=== PATIENT | female | born 1965 | race Caucasian/White ===

== ENCOUNTER → 2016-09-02 | Outpatient (CLI) | payer BC ==
[~2016-09-02] MED LIST: AUGMENTIN 500 M1 TAB PO; NAPROSYN500 MG PO; NORCO 5-325 TA1 EACH PO; PENNSAID112 GM TP; TESSALON PERLE100 M1 PO; TORADOL10 MG PO; ZITHROMAX Z PA250 MG PO
== END | disposition home or self-care (01) ==
LOC: ORTHO 01:21
DX: M25.521 Pain in right elbow (principal)

== ENCOUNTER → 2016-12-09 | Outpatient (CLI) | payer BC | END | disposition home or self-care (01) | LOC: CT 12:48 | DX: M17.12 Unilateral primary osteoarthritis, left knee (principal) ==

== ENCOUNTER → 2017-01-25 | Outpatient (CLI) | payer BC ==
[~2017-01-25] MED LIST changes: +BELVIQ10 M1 PO; +CELECOXIB200 M1 PO; +IBU-200200 MG PO; +ULTRAM50 MG PO
[2017-01-25 09:23] LABS: BILIRUBIN NEGATIVE (NEGATIVE); BLOOD 1+ (NEGATIVE); CLARITY CLOUDY (CLEAR); COLOR YELLOW (YELLOW); GLUCOSE NEGATIVE (NEGATIVE); KETONE TRACE (NEGATIVE); LEUKO ESTERASE TRACE (NEGATIVE); NITRITE NEGATIVE (NEGATIVE); PH 5.5 (5.0-9.0); PROTEIN NEGATIVE (NEGATIVE); SPECIFIC GRAVITY >= 1.030 (1.005-1.030); UROBILINOGEN 0.2 E.U./dl (0.2-1.0)
[2017-01-25 09:25] LABS: BASO % 0.3 % (0.0-1.0); EOS # 0.4 10*3/uL (0.0-0.4); HEMATOCRIT 39.8 % (37.0-47.0); HEMOGLOBIN 13.5 g/dl (12.0-16.0); LYMPH # 1.1 10*3/uL (1.3-4.4); LYMPH % 17.1 % (27.0-41.0); MEAN CELL VOLUME 90.7 fl (81.0-99.0); MEAN CORPUSCULAR HGB 30.8 pg (27.0-31.0); MEAN CORPUSCULAR HGB CONC 33.9 g/dl (33.0-37.0); MEAN PLATELET VOLUME 9.9 fl (9.6-12.3); MONO # 0.5 10*3/uL (0.1-1.0); MONO % 8.1 % (3.0-9.0); NEUT # 4.1 10*3/uL (2.3-7.9); PLATELET COUNT AUTOMATED 248 10*3/uL (130-400); RED BLOOD COUNT 4.39 10*6/uL (4.10-5.10); RED CELL DISTRI WIDTH 12.3 % (0-14.5); WHITE BLOOD COUNT 6.1 10*3/uL (4.8-10.8)
[2017-01-25 09:36] LABS: BACTERIA 4+; EPITHELIAL CELLS 15-20; URINE REFLEX COMMENT YES (NO)
[2017-01-25 09:50] LABS: ALBUMIN 3.8 gm/dl (3.1-4.5); ALKALINE PHOSPHATASE 50 U/L (45-117); BILIRUBIN, TOTAL 0.7 mg/dl (0.2-1.0); BUN 12 mg/dl (7-24); CARBON DIOXIDE 27 mmol/L (21-32); CHLORIDE 108 mmol/L (98-107); EST GLOM FILT AFRICAN AMERICAN > 60 ml/min; GLUCOSE 89 mg/dL (65-99); POTASSIUM 4.1 mmol/L (3.5-5.1); SGOT/AST 14 IU/L (3-35); SGPT/ALT 17 U/L (12-78); SODIUM 143 mmol/L (136-145); TOTAL PROTEIN 7.1 gm/dL (6.4-8.2)
== END | disposition home or self-care (01) ==
LOC: LAB 08:03
PROVIDERS: Orthopaedic Surgery
DX: Z01.818 Encounter for other preprocedural examination (principal); M17.12 Unilateral primary osteoarthritis, left knee; Z96.652 Presence of left artificial knee joint

== ENCOUNTER → 2017-01-25 | Outpatient (CLI) | payer BC ==
[~2017-01-25] VITALS: Ht 160 cm; Wt 97.5 kg
== END | disposition home or self-care (01) ==
LOC: SDC 08:00 → LAB 15:04 → SDC 01-31 03:32 → EDSTATUS 01-31 08:00
DX: M19.90 Unspecified osteoarthritis, unspecified site (principal); Z53.8 Procedure and treatment not carried out for other reasons

== ENCOUNTER → 2017-01-26 | Outpatient (CLI) | payer BC ==
[2017-01-26 10:39] LABS: BILIRUBIN NEGATIVE (NEGATIVE); BLOOD TRACE-INTACT (NEGATIVE); CLARITY SL CLOUDY (CLEAR); COLOR YELLOW (YELLOW); GLUCOSE NEGATIVE (NEGATIVE); KETONE TRACE (NEGATIVE); LEUKO ESTERASE NEGATIVE (NEGATIVE); NITRITE NEGATIVE (NEGATIVE); PROTEIN NEGATIVE (NEGATIVE); SPECIFIC GRAVITY 1.025 (1.005-1.030)
[2017-01-26 13:00] LABS: BACTERIA 2+; URINE REFLEX COMMENT YES (NO)
== END | disposition home or self-care (01) ==
LOC: LAB 09:21
PROVIDERS: Orthopaedic Surgery
DX: R89.9 Unspecified abnormal finding in specimens from other organs, systems and tissues (principal)

== ENCOUNTER → 2017-01-30 | Outpatient (CLI) | payer BC ==
[2017-01-30 14:45] LABS: BILIRUBIN NEGATIVE (NEGATIVE); BLOOD NEGATIVE (NEGATIVE); CLARITY CLEAR (CLEAR); COLOR YELLOW (YELLOW); GLUCOSE NEGATIVE (NEGATIVE); KETONE NEGATIVE (NEGATIVE); LEUKO ESTERASE NEGATIVE (NEGATIVE); NITRITE NEGATIVE (NEGATIVE); PROTEIN NEGATIVE (NEGATIVE); SPECIFIC GRAVITY <= 1.005 (1.005-1.030); UROBILINOGEN 0.2 E.U./dl (0.2-1.0)
[2017-01-30 15:21] LABS: BACTERIA 1+; URINE REFLEX COMMENT NO (NO); WBC 0-2 wbc/hpf (0-5)
== END | disposition home or self-care (01) ==
LOC: LAB 13:37
PROVIDERS: Orthopaedic Surgery
DX: R89.9 Unspecified abnormal finding in specimens from other organs, systems and tissues (principal)

== ENCOUNTER → 2017-01-31 | Outpatient (CLI) | payer BC ==
--- NOTE | ~2017-01-31 | ST ---
[place], [place] EXERCISE STRESS TEST REPORT NAME: OFELIA BANKS UNIT #: [id number] ROOM: DOCTOR: YUMIKO SANTANA,SAVITA BIRTHDATE: [birth year] DOS: 01/31/2017 REASON FOR STUDY: Abnormal preoperative electrocardiogram, preoperative assessment prior to knee surgery. PROCEDURE: The patient was given a rapid infusion of regadenoson 0.4 mg intravenously followed by a saline flush. She felt flushed, lightheaded, and dyspneic, but her symptoms passed spontaneously. Her resting heart rate of 68 alberto to 119. The resting blood pressure 172/96 fell to 150/84. The resting electrocardiogram was normal with poor precordial R-wave progression, but no acute changes. With the infusion, she did have a normal tachycardic response, but no diagnostic ST changes. IMPRESSION: 1. Well tolerated infusion regadenoson. 2. Radionuclide administered 40 seconds after the infusion of regadenoson. Please see the separate radionuclide imaging report for further details of the patient's stress test results. SAVITA CALDERON MD CM:STRESS:EXERCISE STRESS TEST REPORT [id number] SAVITA CALDERON MD
== END | disposition home or self-care (01) ==
LOC: CARD 02:44
DX: Z01.818 Encounter for other preprocedural examination (principal); R94.31 Abnormal electrocardiogram [ECG] [EKG]

== ENCOUNTER → 2017-02-03 | Outpatient (CLI) | payer BC | END | disposition home or self-care (01) | LOC: CARD 00:28 | DX: Z01.818 Encounter for other preprocedural examination (principal); R94.31 Abnormal electrocardiogram [ECG] [EKG]; I07.1 Rheumatic tricuspid insufficiency ==

== ENCOUNTER 2017-02-14 04:00 | Inpatient (IN) | payer OTHER ==
[2017-02-14] VITALS (10 sets, daily range): BP systolic 102–131; BP diastolic 59–88
[~2017-02-14] VITALS: Ht 160 cm; Wt 97.5 kg
[2017-02-14 13:42] LABS: BASO % 0.1 % (0.0-1.0); EOS # 0.2 10*3/uL (0.0-0.4); EOS % 1.8 % (1.0-4.0); HEMATOCRIT 38.1 % (37.0-47.0); HEMOGLOBIN 12.9 g/dl (12.0-16.0); LYMPH # 0.9 10*3/uL (1.3-4.4); LYMPH % 9.9 % (27.0-41.0); MEAN CELL VOLUME 90.9 fl (81.0-99.0); MEAN CORPUSCULAR HGB 30.8 pg (27.0-31.0); MEAN CORPUSCULAR HGB CONC 33.9 g/dl (33.0-37.0); MEAN PLATELET VOLUME 9.4 fl (9.6-12.3); MONO # 0.7 10*3/uL (0.1-1.0); MONO % 7.9 % (3.0-9.0); NEUT # 7.4 10*3/uL (2.3-7.9); PLATELET COUNT AUTOMATED 213 10*3/uL (130-400); RED BLOOD COUNT 4.19 10*6/uL (4.10-5.10); RED CELL DISTRI WIDTH 12.4 % (0-14.5); WHITE BLOOD COUNT 9.2 10*3/uL (4.8-10.8)
[2017-02-14 13:50] LABS: PROTHROMBIN TIME 10.8 SECONDS (9.0-12.4)
[2017-02-14 13:59] LABS: ALBUMIN 3.3 gm/dl (3.1-4.5); ALKALINE PHOSPHATASE 48 U/L (45-117); BILIRUBIN, TOTAL 0.4 mg/dl (0.2-1.0); BUN 8 mg/dl (7-24); CARBON DIOXIDE 28 mmol/L (21-32); CHLORIDE 109 mmol/L (98-107); CHOLESTEROL 145 mg/dL (<200); EST GLOM FILT AFRICAN AMERICAN > 60 ml/min; GLUCOSE 109 mg/dL (65-99); HDL CHOLESTEROL 46 mg/dl (40-60); LDL CHOLESTEROL 87 mg/dL (9-159); PHOSPHOROUS 3.7 mg/dL (2.5-4.9); POTASSIUM 4.1 mmol/L (3.5-5.1); SGOT/AST 13 IU/L (3-35); SGPT/ALT 18 U/L (12-78); SODIUM 148 mmol/L (136-145); TOTAL PROTEIN 6.4 gm/dL (6.4-8.2); TRIGLYCERIDES 62 mg/dl (<150); VLDL CHOLESTEROL 12 mg/dL (6-40)
[2017-02-14 14:00] LABS: FREE T4 1.23 ng/dl (0.76-1.46)
[2017-02-14 14:21] LABS: HEMOGLOBIN A1c 5.4 % (4.8-5.6)
[2017-02-14 16:20] LABS: FOLIC ACID 17.91 ng/mL (>5.38); VITAMIN D, 25-HYDROXY 39.3 ng/mL (30-100)
[2017-02-15] VITALS: BP 139/78
[2017-02-15 06:32] LABS: BASO % 0.2 % (0.0-1.0); EOS # 0.1 10*3/uL (0.0-0.4); HEMATOCRIT 34.5 % (37.0-47.0); HEMOGLOBIN 11.6 g/dl (12.0-16.0); IG # 0.1 10*3/uL (0.0-0.1); LYMPH % 8.9 % (27.0-41.0); MEAN CELL VOLUME 91.8 fl (81.0-99.0); MEAN CORPUSCULAR HGB 30.9 pg (27.0-31.0); MEAN CORPUSCULAR HGB CONC 33.6 g/dl (33.0-37.0); MEAN PLATELET VOLUME 9.7 fl (9.6-12.3); MONO # 1.2 10*3/uL (0.1-1.0); MONO % 10.6 % (3.0-9.0); NEUT # 9.1 10*3/uL (2.3-7.9); NEUT % 78.9 % (47.0-73.0); PLATELET COUNT AUTOMATED 198 10*3/uL (130-400); RED BLOOD COUNT 3.76 10*6/uL (4.10-5.10); RED CELL DISTRI WIDTH 12.6 % (0-14.5); WHITE BLOOD COUNT 11.5 10*3/uL (4.8-10.8)
[2017-02-15 06:49] LABS: BUN 7 mg/dl (7-24); CARBON DIOXIDE 28 mmol/L (21-32); CHLORIDE 106 mmol/L (98-107); EST GLOM FILT AFRICAN AMERICAN > 60 ml/min; GLUCOSE 112 mg/dL (65-99); POTASSIUM 3.8 mmol/L (3.5-5.1); SODIUM 142 mmol/L (136-145)
[2017-02-15 08:00] VITALS: BP 135/74
[2017-02-15 12:00] VITALS: BP 143/72
[2017-02-15 16:00] VITALS: BP 144/82
[2017-02-15 20:00] VITALS: BP 148/86
[2017-02-16] VITALS: BP 143/75
[2017-02-16 06:01] LABS: BASO % 0.2 % (0.0-1.0); EOS # 0.1 10*3/uL (0.0-0.4); EOS % 0.7 % (1.0-4.0); HEMATOCRIT 34.5 % (37.0-47.0); HEMOGLOBIN 11.5 g/dl (12.0-16.0); LYMPH # 0.9 10*3/uL (1.3-4.4); LYMPH % 9.5 % (27.0-41.0); MEAN CELL VOLUME 92.5 fl (81.0-99.0); MEAN CORPUSCULAR HGB 30.8 pg (27.0-31.0); MEAN CORPUSCULAR HGB CONC 33.3 g/dl (33.0-37.0); MEAN PLATELET VOLUME 9.6 fl (9.6-12.3); MONO % 11.1 % (3.0-9.0); NEUT # 7.3 10*3/uL (2.3-7.9); NEUT % 78.2 % (47.0-73.0); PLATELET COUNT AUTOMATED 196 10*3/uL (130-400); RED BLOOD COUNT 3.73 10*6/uL (4.10-5.10); RED CELL DISTRI WIDTH 12.5 % (0-14.5); WHITE BLOOD COUNT 9.4 10*3/uL (4.8-10.8)
[2017-02-16 08:00] VITALS: BP 164/77
[2017-02-16 12:00] VITALS: BP 151/71
[2017-02-16 16:00] VITALS: BP 152/71
[2017-02-16 20:00] VITALS: BP 114/54; BP 146/74
[2017-02-17] VITALS: BP 145/82
[2017-02-17 06:03] LABS: BASO % 0.4 % (0.0-1.0); EOS # 0.2 10*3/uL (0.0-0.4); EOS % 2.6 % (1.0-4.0); HEMATOCRIT 34.6 % (37.0-47.0); HEMOGLOBIN 11.8 g/dl (12.0-16.0); LYMPH # 1.4 10*3/uL (1.3-4.4); LYMPH % 17.5 % (27.0-41.0); MEAN CELL VOLUME 91.5 fl (81.0-99.0); MEAN CORPUSCULAR HGB 31.2 pg (27.0-31.0); MEAN CORPUSCULAR HGB CONC 34.1 g/dl (33.0-37.0); MEAN PLATELET VOLUME 9.7 fl (9.6-12.3); MONO # 0.8 10*3/uL (0.1-1.0); MONO % 10.1 % (3.0-9.0); NEUT # 5.3 10*3/uL (2.3-7.9); NEUT % 69.1 % (47.0-73.0); PLATELET COUNT AUTOMATED 224 10*3/uL (130-400); RED BLOOD COUNT 3.78 10*6/uL (4.10-5.10); RED CELL DISTRI WIDTH 12.5 % (0-14.5); WHITE BLOOD COUNT 7.7 10*3/uL (4.8-10.8)
[2017-02-17 08:00] VITALS: BP 152/82
[2017-02-17 12:00] VITALS: BP 150/80
[2017-02-17] MEDS ORDERED: Percocet 325 MG1 TAB PO (13:09)
[2017-02-17] MEDS ORDERED: ENOXAPARIN40 MG/0.2 SC (13:09)
== END 2017-02-17 16:45 | disposition home health service (06) | DRG 470 ==
LOC: SDC 04:00 → 5E 10:51
PROVIDERS: Internal Medicine; Orthopaedic Surgery
PROC: 0SRD0J9 Replacement of Left Knee Joint with Synthetic Substitute, Cemented, Open Approach (ICD-10-PCS; principal; 2017-02-14)
DX: M17.12 Unilateral primary osteoarthritis, left knee (principal); E44.0 Moderate protein-calorie malnutrition; E87.0 Hyperosmolality and hypernatremia; R00.1 Bradycardia, unspecified; D72.810 Lymphocytopenia; E66.09 Other obesity due to excess calories; I10 Essential (primary) hypertension; Z82.3 Family history of stroke; Z82.5 Family history of asthma and other chronic lower respiratory diseases; Z79.1 Long term (current) use of non-steroidal anti-inflammatories (NSAID); Z79.899 Other long term (current) drug therapy; Z68.38 Body mass index [BMI] 38.0-38.9, adult

== ENCOUNTER → 2017-03-31 | Outpatient (CLI) | payer OTHER ==
[~2017-03-31] MED LIST changes: +ENOXAPARIN40 MG/0.2 SC; +Percocet 325 MG1 TAB PO
== END | disposition home or self-care (01) ==
LOC: ORTHO 00:26
DX: S83.232D Complex tear of medial meniscus, current injury, left knee, subsequent encounter (principal); X58.XXXD Exposure to other specified factors, subsequent encounter

== ENCOUNTER → 2017-07-10 | Outpatient (CLI) | payer OTHER | END | disposition home or self-care (01) | LOC: ORTHO 03:45 | DX: Z96.652 Presence of left artificial knee joint (principal) ==

== ENCOUNTER → 2017-08-04 | Outpatient (CLI) | payer OTHER | END | disposition home or self-care (01) | LOC: RAD 17:48 | DX: M19.012 Primary osteoarthritis, left shoulder (principal) ==

== ENCOUNTER → 2017-09-18 | Outpatient (CLI) | payer OTHER | END | disposition home or self-care (01) | LOC: US 13:01 | DX: N83.201 Unspecified ovarian cyst, right side (principal) ==

== ENCOUNTER → 2017-09-26 | Outpatient (CLI) | payer OTHER | END | disposition home or self-care (01) | LOC: MAMMO 16:28 | DX: Z12.31 Encounter for screening mammogram for malignant neoplasm of breast (principal) ==

== ENCOUNTER → 2017-11-07 | Outpatient (CLI) | payer OTHER | END | disposition home or self-care (01) | LOC: CT 01:24 | DX: N93.9 Abnormal uterine and vaginal bleeding, unspecified (principal) ==

== ENCOUNTER → 2018-01-17 | Outpatient (CLI) | payer OTHER | END | disposition home or self-care (01) | LOC: EDSTATUS 01-15 10:00 | DX: M75.32 Calcific tendinitis of left shoulder (principal) ==

== ENCOUNTER → 2018-02-05 | Outpatient (CLI) | payer OTHER | END | disposition home or self-care (01) | LOC: ORTHO 01:00 | DX: Z47.89 Encounter for other orthopedic aftercare (principal) ==

== ENCOUNTER → 2018-05-31 | Outpatient (CLI) | payer OTHER ==
[~2018-05-31] MED LIST changes: +PERSA-GEL28 GM T; +ZOFRAN 4 MG ED2 TAB PO
--- NOTE | ~2018-05-31 | EKG ---
[place], [place] ELECTROCARDIOGRAM REPORT NAME: OFELIA BANKS UNIT #: [id number] ROOM: DOCTOR: EPIPHANY DRAFT REPORT BIRTHDATE: [birth year] [facility] Test Date: 2018-05-31 Test Time: 11:31:42 Pat Name: OFELIA BANKS Department: Room: Gender: F Engagement Executive: Annie Nettles : 1965 Requested By: JAH CALDERON Order Number: [id number] Reading MD: Jah Calderon MD Measurements Intervals [place] Rate: 55 P: 34 CT: 177 QRS: -8 QRSD: 79 T: 16 QT: 435 QTc: 416 Interpretive Statements Sinus rhythm Low voltage, precordial leads Probable anteroseptal infarct, old Electronically Signed On 05-31-2018 19:10:15 PDT by Jah Calderon MD CM:EKGRPT:ELECTROCARDIOGRAM REPORT [id number] JAH CALDERON MD EPIPHANY DRAFT REPORT JAH CALDERON MD
[2018-05-31 11:22] LABS: BASO % 0.4 % (0.0-1.0); EOS # 0.4 10*3/uL (0.0-0.4); EOS % 5.1 % (1.0-4.0); HEMATOCRIT 41.5 % (37.0-47.0); HEMOGLOBIN 14.2 g/dl (12.0-16.0); LYMPH # 1.6 10*3/uL (1.3-4.4); LYMPH % 20.8 % (27.0-41.0); MEAN CELL VOLUME 89.8 fl (81.0-99.0); MEAN CORPUSCULAR HGB 30.7 pg (27.0-31.0); MEAN CORPUSCULAR HGB CONC 34.2 g/dl (33.0-37.0); MEAN PLATELET VOLUME 9.1 fl (9.6-12.3); MONO # 0.7 10*3/uL (0.1-1.0); MONO % 8.5 % (3.0-9.0); NEUT # 5.1 10*3/uL (2.3-7.9); NEUT % 64.9 % (47.0-73.0); PLATELET COUNT AUTOMATED 250 10*3/uL (130-400); RED BLOOD COUNT 4.62 10*6/uL (4.10-5.10); RED CELL DISTRI WIDTH 12.7 % (0-14.5); WHITE BLOOD COUNT 7.9 10*3/uL (4.8-10.8)
[2018-05-31 11:48] LABS: ALBUMIN 3.8 gm/dl (3.1-4.5); ALKALINE PHOSPHATASE 60 U/L (45-117); BUN 10 mg/dl (7-24); CHLORIDE 105 mmol/L (98-107); SGOT/AST 19 IU/L (3-35); SGPT/ALT 20 U/L (12-78); SODIUM 141 mmol/L (136-145); TOTAL PROTEIN 7.5 gm/dL (6.4-8.2)
[2018-05-31 12:49] LABS: BILIRUBIN NEGATIVE (NEGATIVE); BLOOD NEGATIVE (NEGATIVE); CLARITY SL CLOUDY (CLEAR); COLOR YELLOW (YELLOW); GLUCOSE NEGATIVE (NEGATIVE); KETONE TRACE (NEGATIVE); LEUKO ESTERASE NEGATIVE (NEGATIVE); NITRITE NEGATIVE (NEGATIVE); SPECIFIC GRAVITY 1.005 (1.005-1.030); UROBILINOGEN 0.2 E.U./dl (0.2-1.0)
[2018-05-31 12:50] LABS: BACTERIA 2+; RBC 0-2 rbc/hpf (0-2)
== END | disposition home or self-care (01) ==
LOC: LAB 10:38
PROVIDERS: Orthopaedic Surgery
DX: M19.012 Primary osteoarthritis, left shoulder (principal); M75.42 Impingement syndrome of left shoulder

== ENCOUNTER → 2018-06-07 | Day surgery (SDC) | payer OTHER ==
[2018-05-31 11:15] VITALS: BP 155/97
[2018-06-07] VITALS (8 sets, daily range): BP systolic 127–149; BP diastolic 53–76
[~2018-06-07] VITALS: Ht 157.5 cm; Wt 89.4 kg
--- NOTE | ~2018-06-07 | EKG ---
[place], [place] ELECTROCARDIOGRAM REPORT NAME: OFELIA BANKS UNIT #: [id number] ROOM: DOCTOR: EPIPHANY DRAFT REPORT BIRTHDATE: [birth year] [facility] Test Date: 2018-06-07 Test Time: 13:29:47 Pat Name: OFELIA BANKS Department: Room: Gender: F Sprayer Leather: Jennifer Birch : 1965 Requested By: KYLAH BAR Order Number: [id number] Reading MD: Jah Graves MD Measurements Intervals [place] Rate: 57 P: -25 [place]: 154 QRS: -5 QRSD: 83 T: -12 QT: 455 QTc: 443 Interpretive Statements Sinus rhythm Low voltage, extremity and precordial leads Possible old anterior [place] Compared to ECG 05/31/2018 11:31:42 Low voltage is now present Electronically Signed On 06-07-2018 20:48:35 PDT by Jah Graves MD CM:EKGRPT:ELECTROCARDIOGRAM REPORT [id number] KYLAH WAGNER DRAFT REPORT KYLAH BAR MD
--- NOTE | ~2018-06-07 | O ---
[place], [place] OPERATIVE NOTE NAME: [facility]ANKS [id number] UNIT #: [id number] ROOM: DOCTOR: NICOLE RICKS DO BIRTHDATE: [birth year] DOS: 06/07/2018 PREOPERATIVE DIAGNOSES: Left shoulder labral tear, impingement syndrome, acromioclavicular joint arthritis. POSTOPERATIVE DIAGNOSES: Left shoulder labral tear, impingement syndrome, acromioclavicular joint arthritis. PROCEDURES: Left shoulder arthroscopy with arthroscopic debridement of the labral tear and arthroscopic subacromial decompression, open [place]. SURGEON: Nicole Ricks DO. FARMWORKER LIVESTOCK: Derek Westbrook. ANESTHESIA: SADIE Boyce. TYPE OF ANESTHESIA: Interscalene block and a general with endotracheal intubation. INDICATIONS: The patient is a 52-year-old female with a history of left shoulder pain, unrelieved with conservative care. MRI confirmed a degenerative labral tear as well as impingement syndrome, subacromial and acromioclavicular joint arthritis. The patient had failed conservative treatment. She had had second opinions by shoulder specialist and the labrum was determined to be more frayed and degenerative and a tear which was repairable. We discussed the risks and benefits of the procedure preoperatively. Preoperative labs and x-rays were obtained. DESCRIPTION OF PROCEDURE: An interscalene block was performed by Anesthesia. The left shoulder was marked in the holding room. The patient was brought to the operative suite. The patient was placed supine on the operative table. A timeout was performed. A general anesthetic with endotracheal intubation was performed. The patient was placed in a modified beach chair position. The left shoulder was prepped and draped in the usual orthopedic manner. The posterolateral portal was injected with Marcaine 0.5% with epinephrine. A 1 cm incision was made sharply with a scalpel. The blunt trocar and cannula were used to enter the glenohumeral joint. The inflow and the outflow were established through the cannula. The trocar was removed. The camera was placed in the glenohumeral joint. There was noted to be significant fraying of the labrum. This was visualized at the superior and posterior regions and minimally on anterior region. Attention was then turned to the subacromial joint. The blunt trocar and cannula were placed in the subacromial region. The trocar was removed. The cannula remained. The inflow and the outflow were established through the cannula. The arthroscopy camera was placed through the cannula. A lateral portal was created using an injection of Marcaine 0.5% with epinephrine. This was followed by a #11 blade at the lateral portal and a blunt trocar. The blunt [place], [place] OPERATIVE NOTE NAME: OFELIA BANKS UNIT #: [id number] ROOM: DOCTOR: NICOLE RICKS DO BIRTHDATE: [birth year] trocar was used to sweep the subacromial bursa from the region. A full radius resector was then placed to debride the bursa as well as the undersurface of the acromion. The acromion had been marked with a spinal needle, both medially and laterally. When this was completed, the Arthrocare wand with the hook was utilized to release the coracoacromial ligament. This was followed by a bur to remove the anterior portion of the acromion including a substantial spur. When this was completed, the area was copiously irrigated with normal saline. This was followed by removal of the instrumentation. Identification of the distal clavicle. The distal clavicle was marked with a marking pen. The area was injected with Marcaine 0.5 with epinephrine. The longitudinal incision was made sharply with a scalpel. Subcutaneous tissue was spread down to the level of the capsule. The capsule was identified. This was divided with electrocautery. A [place] elevator was used to expose the distal clavicle. Two baby Hohmanns were placed to expose the distal clavicle. An oscillating saw was used to remove the distal 1 cm of the clavicle. This was followed by the use of a handheld rasp to gently smooth the undersurface of the clavicle. The area was copiously irrigated with normal saline. Attention was then turned back to the glenohumeral joint. The blunt trocar and cannula entered the joint at the posterolateral portal. Trocar was removed. The cannula remained. The camera was placed in the cannula. This was advanced to the level of the rotator interval. A switching stick was then placed through the cannula after the camera was removed. The skin was injected with Marcaine 0.5% with epinephrine. The switching stick was advanced. A 2 cm incision was made. The 7 mm cannula was then placed over the switching stick and advanced. The camera was placed back into the original cannula. The inflow and the outflow were established through the cannula. A full-radius resector was then placed into the anterior cannula. This was used to debride the loose and fragmented portions of the labrum. When this was completed, an Arthrocare wand was used to gently debride and smooth the edges of the labrum. When this was completed, the shoulder was copiously irrigated with normal saline. The instrumentation was removed. The portals were expressed of any excess fluid. The portals were closed with 3-0 Prolene, posterior, lateral and anterior. The area of the Gary procedure was closed with 0 Vicryl at the level of the capsule, followed by 2-0 Vicryl and Prolene. The incisions were injected with Marcaine 0.5% with epinephrine. The dressing was completed with Xeroform, 4 x 4s, ABDs and Tegaderm. The patient was placed into a sling. The anesthetic was reversed. The patient was extubated and taken to the recovery room in satisfactory condition. ESTIMATED BLOOD LOSS: 25 mL. SPECIMENS: Distal clavicle. DRAINS: None. PACKING: None. COMPLICATIONS: None. FINDINGS: 1. Labral tear, degenerative, anterior, superior and posterior. [place], [place] OPERATIVE NOTE NAME: OFELIA BANKS UNIT #: [id number] ROOM: DOCTOR: NICOLE RICKS DO BIRTHDATE: [birth year] 2. Subacromial impingement. 3. Acromioclavicular joint arthritis. NICOLE RICKS DO CM:OPRECORD:OPERATIVE NOTE 21 13 NICOLE RICKS DO 06/08/182111 interface
== END | disposition home or self-care (01) ==
LOC: SDC 05-31 11:00
DX: M19.012 Primary osteoarthritis, left shoulder (principal); S43.402A Unspecified sprain of left shoulder joint, initial encounter; M75.42 Impingement syndrome of left shoulder; I10 Essential (primary) hypertension; F32.9 Major depressive disorder, single episode, unspecified; Z96.652 Presence of left artificial knee joint; Z98.890 Other specified postprocedural states; Z80.3 Family history of malignant neoplasm of breast; Z79.899 Other long term (current) drug therapy; Z87.442 Personal history of urinary calculi; Z82.49 Family history of ischemic heart disease and other diseases of the circulatory system; Z83.3 Family history of diabetes mellitus; Z82.3 Family history of stroke

== ENCOUNTER → 2018-09-14 | Outpatient (CLI) | payer OTHER ==
[~2018-09-14] MED LIST changes: +GLUCOSAMINE1000 MG PO; +MULTIVITAMINS1 EAC5 PO; +PENNSAID112 GM T; +PERCOCET 5-3251 EACH PO; +ZOFRAN4 MG PO
== END ==
LOC: RAD 15:34
DX: M79.672 Pain in left foot (principal)

== ENCOUNTER → 2018-10-23 | Outpatient (CLI) | payer OTHER | END | disposition home or self-care (01) | LOC: CT 01:20 | DX: R10.9 Unspecified abdominal pain (principal) ==

== ENCOUNTER → 2018-11-15 | Outpatient (CLI) | payer OTHER | END | disposition home or self-care (01) | LOC: US 03:33 | DX: N83.201 Unspecified ovarian cyst, right side (principal) ==

== ENCOUNTER → 2019-02-04 | Outpatient (CLI) | payer OTHER | END | disposition home or self-care (01) | LOC: RAD 12:14 | DX: M25.561 Pain in right knee (principal); M25.361 Other instability, right knee ==

== ENCOUNTER → 2019-02-06 | Outpatient (CLI) | payer OTHER | END | disposition home or self-care (01) | LOC: MRI 08:38 | DX: M71.21 Synovial cyst of popliteal space [Baker], right knee (principal); S83.241A Other tear of medial meniscus, current injury, right knee, initial encounter; M25.461 Effusion, right knee; X58.XXXA Exposure to other specified factors, initial encounter; Y93.89 Activity, other specified; Y92.89 Other specified places as the place of occurrence of the external cause; Y99.8 Other external cause status ==

== ENCOUNTER → 2019-03-27 | Outpatient (CLI) | payer OTHER ==
[2019-03-27 14:26] LABS: BILIRUBIN NEGATIVE (NEGATIVE); BLOOD NEGATIVE (NEGATIVE); CLARITY SL CLOUDY (CLEAR); COLOR YELLOW (YELLOW); GLUCOSE NEGATIVE (NEGATIVE); KETONE NEGATIVE (NEGATIVE); LEUKO ESTERASE NEGATIVE (NEGATIVE); NITRITE NEGATIVE (NEGATIVE); UROBILINOGEN 0.2 E.U./dl (0.2-1.0)
[2019-03-27 14:26] LABS: BASO % 0.5 % (0.0-1.0); EOS # 0.4 10*3/uL (0.0-0.4); EOS % 5.4 % (1.0-4.0); HEMATOCRIT 40.3 % (37.0-47.0); HEMOGLOBIN 13.8 g/dl (12.0-16.0); LYMPH # 1.6 10*3/uL (1.3-4.4); LYMPH % 19.8 % (27.0-41.0); MEAN CELL VOLUME 90.2 fl (81.0-99.0); MEAN CORPUSCULAR HGB 30.9 pg (27.0-31.0); MEAN CORPUSCULAR HGB CONC 34.2 g/dl (33.0-37.0); MEAN PLATELET VOLUME 9.3 fl (9.6-12.3); MONO # 0.8 10*3/uL (0.1-1.0); MONO % 9.4 % (3.0-9.0); NEUT # 5.2 10*3/uL (2.3-7.9); NEUT % 64.7 % (47.0-73.0); PLATELET COUNT AUTOMATED 267 10*3/uL (130-400); RED BLOOD COUNT 4.47 10*6/uL (4.10-5.10); RED CELL DISTRI WIDTH 12.7 % (0-14.5); WHITE BLOOD COUNT 8.1 10*3/uL (4.8-10.8)
[2019-03-27 14:41] LABS: ALBUMIN 3.8 gm/dl (3.1-4.5); ALKALINE PHOSPHATASE 65 U/L (45-117); BUN 16 mg/dl (7-24); CHLORIDE 109 mmol/L (98-107); CREATININE 0.91 mg/dL (0.55-1.02); POTASSIUM 3.6 mmol/L (3.5-5.1); SGOT/AST 22 IU/L (3-35); SGPT/ALT 19 U/L (12-78); SODIUM 140 mmol/L (136-145); TOTAL PROTEIN 7.5 gm/dL (6.4-8.2)
[2019-03-27 14:46] LABS: WBC 0-2 wbc/hpf (0-5)
[2019-03-27 14:47] LABS: BACTERIA TRACE
== END | disposition home or self-care (01) ==
LOC: LAB 10:56
PROVIDERS: Orthopaedic Surgery
DX: S83.241D Other tear of medial meniscus, current injury, right knee, subsequent encounter (principal); X58.XXXD Exposure to other specified factors, subsequent encounter

== ENCOUNTER 2019-07-19 07:45 | Inpatient (IN) | payer OTHER ==
[~2019-07-19] VITALS: Ht 160 cm; Wt 89.4 kg
[2019-07-19 07:45] VITALS: BP 150/90
[2019-07-19 08:57] LABS: BASO % 0.1 % (0.0-1.0); EOS # 0.1 10*3/uL (0.0-0.4); EOS % 0.8 % (1.0-4.0); HEMATOCRIT 41.7 % (37.0-47.0); HEMOGLOBIN 14.1 g/dl (12.0-16.0); MEAN CELL VOLUME 90.5 fl (81.0-99.0); MEAN CORPUSCULAR HGB 30.6 pg (27.0-31.0); MEAN CORPUSCULAR HGB CONC 33.8 g/dl (33.0-37.0); MONO # 0.5 10*3/uL (0.1-1.0); MONO % 6.5 % (3.0-9.0); NEUT # 5.6 10*3/uL (2.3-7.9); PLATELET COUNT AUTOMATED 277 10*3/uL (130-400); RED BLOOD COUNT 4.61 10*6/uL (4.10-5.10); RED CELL DISTRI WIDTH 11.9 % (0-14.5); WHITE BLOOD COUNT 7.2 10*3/uL (4.8-10.8)
[2019-07-19 09:09] LABS: ACT PARTIAL THROMBO TIME 24.5 SECONDS (20.0-32.1); INTERNATIONAL NORM RATIO 0.9 (2.0-3.5)
[2019-07-19 09:19] LABS: ALBUMIN 3.5 gm/dl (3.1-4.5); ALKALINE PHOSPHATASE 68 U/L (45-117); BUN 15 mg/dl (7-24); CHLORIDE 107 mmol/L (98-107); CREATININE 0.76 mg/dL (0.55-1.02); LIPASE 228 U/L (73-393); POTASSIUM 4.3 mmol/L (3.5-5.1); SGOT/AST 16 IU/L (3-35); SGPT/ALT 21 U/L (12-78); SODIUM 140 mmol/L (136-145); TOTAL PROTEIN 7.4 gm/dL (6.4-8.2)
--- NOTE | 2019-07-19 09:21 | NUR ---
STUDENT NURSE ASSISTED PT TO RESTROOM BEFORE SHE WENT TO CT.
[2019-07-19 09:31] LABS: TROPONIN I < 0.015 ng/ml (<0.045)
[2019-07-19 09:55] LABS: BILIRUBIN NEGATIVE (NEGATIVE); BLOOD NEGATIVE (NEGATIVE); CLARITY CLEAR (CLEAR); COLOR STRAW (YELLOW); GLUCOSE NEGATIVE (NEGATIVE); KETONE 1+ (NEGATIVE); LEUKO ESTERASE NEGATIVE (NEGATIVE); NITRITE NEGATIVE (NEGATIVE); PH 6.5 (5.0-9.0); SPECIFIC GRAVITY <= 1.005 (1.005-1.030); UROBILINOGEN 0.2 E.U./dl (0.2-1.0)
[2019-07-19 10:21] LABS: BACTERIA 1+; WBC 0-2 wbc/hpf (0-5)
--- NOTE | 2019-07-19 11:18 | NUR ---
PT RESTING IN BED. CALL LIGHT WITHIN REACH
[2019-07-19 11:19] VITALS: BP 122/64
--- NOTE | 2019-07-19 14:28 | NUR ---
PT RESTING IN BED. FAMILY AT BEDSIDE
[2019-07-19 16:27] VITALS: BP 156/66
[2019-07-19 16:50] VITALS: BP 149/74
--- NOTE | 2019-07-19 17:47 | NUR ---
DR. SALEH AWARE PT HOME MEDICATIONS ARE VERIFIED AND NEED ORDERED.
--- NOTE | 2019-07-19 19:00 | NUR ---
BEDSIDE REPORT OBTAINED. PATIENT THAT SHE IS STILL DIZZY, AND THE ROOM SPINS WHEN SHE SITS UP BUT ITS NOT BAD. BED IS LOCKED IN LOWEST POSITION. CALL LIGHT WITHIN REACH
[2019-07-19 20:00] VITALS: BP 118/65
[2019-07-20] VITALS: BP 109/55
--- NOTE | 2019-07-20 04:00 | NUR ---
PATIENT SLEEPING, EYES CLOSED. NO DISTRESS, CALL LIGHT WITHIN REACH
[2019-07-20 06:39] LABS: BASO % 0.2 % (0.0-1.0); EOS # 0.2 10*3/uL (0.0-0.4); EOS % 2.9 % (1.0-4.0); HEMATOCRIT 39.6 % (37.0-47.0); HEMOGLOBIN 12.9 g/dl (12.0-16.0); LYMPH # 1.5 10*3/uL (1.3-4.4); LYMPH % 27.2 % (27.0-41.0); MEAN CELL VOLUME 93.2 fl (81.0-99.0); MEAN CORPUSCULAR HGB 30.4 pg (27.0-31.0); MEAN CORPUSCULAR HGB CONC 32.6 g/dl (33.0-37.0); MEAN PLATELET VOLUME 9.3 fl (9.6-12.3); MONO # 0.5 10*3/uL (0.1-1.0); MONO % 9.7 % (3.0-9.0); NEUT # 3.3 10*3/uL (2.3-7.9); NEUT % 59.6 % (47.0-73.0); PLATELET COUNT AUTOMATED 267 10*3/uL (130-400); RED BLOOD COUNT 4.25 10*6/uL (4.10-5.10); RED CELL DISTRI WIDTH 12.1 % (0-14.5); WHITE BLOOD COUNT 5.6 10*3/uL (4.8-10.8)
[2019-07-20 06:58] LABS: ALBUMIN 3.1 gm/dl (3.1-4.5); ALKALINE PHOSPHATASE 56 U/L (45-117); BUN 11 mg/dl (7-24); CHLORIDE 110 mmol/L (98-107); CHOLESTEROL 145 mg/dL (<200); CREATININE 0.83 mg/dL (0.55-1.02); FREE T4 1.04 ng/dl (0.76-1.46); HDL CHOLESTEROL 47 mg/dl (40-60); LDL CHOLESTEROL 87 mg/dL (9-159); PHOSPHOROUS 3.6 mg/dL (2.5-4.9); POTASSIUM 4.2 mmol/L (3.5-5.1); SGOT/AST 16 IU/L (3-35); SGPT/ALT 18 U/L (12-78); SODIUM 142 mmol/L (136-145); TOTAL PROTEIN 6.5 gm/dL (6.4-8.2); TRIGLYCERIDES 53 mg/dl (<150); VLDL CHOLESTEROL 11 mg/dL (6-40)
[2019-07-20 08:00] VITALS: BP 126/60
--- NOTE | 2019-07-20 08:15 | NUR ---
PHYSICAL THERAPY PT EVAL COMPLETED TODAY ON LEVEL 4: FULL EVAL TO FOLLOW. RECOMMEND VESTIBULAR PT WHILE HERE TO ADDRESS VERTIGO. PATIENT PRESENTS WITH (+) YANICK HALLPIKE TEST TO THE R. COMPLETED SHAYNE MANEUVER TODAY WITH PATIENT TO TRY TO RESOLVE SYMPTOMS WITH EMESIS NOTED ON 3RD MANEUVER AND (+) NYSTAGMUS NOTED. PATIENT DID REPORT SOME RELIEF OF SYMPTOMS APPROX 15-30 MINS POST SHAYNE AND WAS DISCHARGED HOME BY PHYSICIAN AND RECOMMENDED TO FOLLOW UP WITH OUTPATIENT PT. THANK YOU FOR REFERRAL LYLE AYON PT
[2019-07-20 08:22] LABS: VITAMIN D, 25-HYDROXY 29.5 ng/mL (30-100)
[2019-07-20] MEDS ORDERED: MECLIZINE HCL25 M2 PO (08:51)
[2019-07-20] MEDS ORDERED: ZOFRAN4 MG PO (08:51)
--- NOTE | 2019-07-20 11:17 | NUR ---
PATIENT DISCHARGED TO HOME.
--- NOTE | 2019-07-22 08:10 | NUR ---
Nursing screen received. Patient discharged before screen completed. Thank you Carin Melgar OTR/l
== END 2019-07-20 11:17 | disposition home or self-care (01) | DRG 149 ==
LOC: ED 07:45 → EDHOLD 16:04 → 4E 16:19
PROVIDERS: Emergency Medicine; Internal Medicine; ADMIT Internal Medicine
DX: H81.4 Vertigo of central origin (principal); R26.81 Unsteadiness on feet; R00.1 Bradycardia, unspecified; Z96.652 Presence of left artificial knee joint; E55.9 Vitamin D deficiency, unspecified; E87.8 Other disorders of electrolyte and fluid balance, not elsewhere classified; R03.0 Elevated blood-pressure reading, without diagnosis of hypertension; R82.4 Acetonuria; E66.9 Obesity, unspecified; Z68.34 Body mass index [BMI] 34.0-34.9, adult; Z87.442 Personal history of urinary calculi; Z82.3 Family history of stroke; Z83.6 Family history of other diseases of the respiratory system; Z79.899 Other long term (current) drug therapy

== ENCOUNTER → 2019-09-10 | Outpatient (CLI) | payer OTHER ==
[~2019-09-10] MED LIST changes: +MECLIZINE HCL25 M2 PO
== END | disposition home or self-care (01) ==
LOC: ORTHO 00:25
DX: Z98.890 Other specified postprocedural states (principal)

== ENCOUNTER → 2019-11-21 | Outpatient (CLI) | payer OTHER | END | disposition home or self-care (01) | LOC: RAD 14:01 | DX: R26.9 Unspecified abnormalities of gait and mobility (principal); M79.672 Pain in left foot ==

== ENCOUNTER → 2020-01-23 | Outpatient (CLI) | payer OTHER | END | disposition home or self-care (01) | LOC: RAD 13:25 | DX: M24.811 Other specific joint derangements of right shoulder, not elsewhere classified (principal); M19.019 Primary osteoarthritis, unspecified shoulder; G89.29 Other chronic pain ==

== ENCOUNTER → 2020-02-17 | Outpatient (CLI) | payer OTHER | END | disposition home or self-care (01) | LOC: RAD 17:20 | DX: M17.11 Unilateral primary osteoarthritis, right knee (principal) ==

== ENCOUNTER → 2020-05-11 | Outpatient (CLI) | payer OTHER | END | disposition home or self-care (01) | LOC: MAMMO 13:44 | PROVIDERS: ATTEND Obstetrics & Gynecology | DX: Z12.31 Encounter for screening mammogram for malignant neoplasm of breast (principal) ==

== ENCOUNTER → 2021-01-29 | Outpatient (CLI) | payer OTHER | END | disposition home or self-care (01) | LOC: RAD/SH 08:31 | PROVIDERS: ATTEND Family Medicine | DX: R13.19 Other dysphagia (principal) ==

== ENCOUNTER → 2021-03-03 | Outpatient (CLI) | payer OTHER | END | disposition home or self-care (01) | LOC: CT 03-02 15:00 | PROVIDERS: ATTEND Family Medicine | DX: R13.13 Dysphagia, pharyngeal phase (principal); R09.89 Other specified symptoms and signs involving the circulatory and respiratory systems ==

== ENCOUNTER → 2021-03-25 | Day surgery (SDC) | payer OTHER ==
[~2021-03-25] VITALS: Ht 160 cm; Wt 99.8 kg
[~2021-03-25] MED LIST changes: +CARAFATE1 G1 PO; +PRILOSEC20 M1 PO; +PROTONIX40 MG PO; +VIIBRYD20 M1 PO
[2021-03-25 07:30] VITALS: BP 132/87
[2021-03-25 08:59] VITALS: BP 91/45
[2021-03-25 09:14] VITALS: BP 101/50
[2021-03-25 09:29] VITALS: BP 106/52
== END | disposition home or self-care (01) ==
LOC: SDC 03-15 09:30
PROVIDERS: ATTEND Surgery
DX: R13.13 Dysphagia, pharyngeal phase (principal); K29.50 Unspecified chronic gastritis without bleeding; F32.9 Major depressive disorder, single episode, unspecified; Z96.652 Presence of left artificial knee joint; Z79.899 Other long term (current) drug therapy; Z20.822 Contact with and (suspected) exposure to COVID-19; Z98.890 Other specified postprocedural states

== ENCOUNTER → 2021-04-06 | Outpatient (CLI) | payer OTHER | END | disposition home or self-care (01) | LOC: US 14:44 | PROVIDERS: ATTEND Family Medicine | DX: E04.1 Nontoxic single thyroid nodule (principal); R13.19 Other dysphagia; R53.82 Chronic fatigue, unspecified ==

== ENCOUNTER → 2021-04-26 | Outpatient (CLI) | payer OTHER | END | disposition home or self-care (01) | LOC: CT 15:00 | PROVIDERS: ATTEND Family Medicine | DX: R13.19 Other dysphagia (principal) ==

== ENCOUNTER → 2021-04-28 | Outpatient (CLI) | payer OTHER | END | disposition home or self-care (01) | LOC: CT 04-27 15:00 | PROVIDERS: ATTEND Family Medicine | DX: R13.19 Other dysphagia (principal) ==

== ENCOUNTER → 2021-11-29 | Outpatient (CLI) | payer OTHER ==
[2021-11-29 16:31] LABS: HEMATOCRIT 42.7 % (37.0-47.0); MEAN CELL VOLUME 87.3 fl (81.0-99.0); MEAN CORPUSCULAR HGB 30.1 pg (27.0-31.0); MEAN CORPUSCULAR HGB CONC 34.4 g/dl (33.0-37.0); MEAN PLATELET VOLUME 9.1 fl (9.6-12.3); PLATELET COUNT AUTOMATED 250 10*3/uL (130-400); RED BLOOD COUNT 4.89 10*6/uL (4.10-5.10); RED CELL DISTRI WIDTH 12.7 % (0-14.5); WHITE BLOOD COUNT 11.1 10*3/uL (4.8-10.8)
[2021-11-29 16:35] LABS: MANUAL DIFF REFLEX YES
[2021-11-29 16:52] LABS: ALKALINE PHOSPHATASE 123 U/L (45-117); BUN 12 mg/dl (7-24); CHLORIDE 112 mmol/L (98-107); CREATININE 0.81 mg/dL (0.55-1.02); POTASSIUM 3.4 mmol/L (3.5-5.1); SGOT/AST 16 IU/L (3-35); SGPT/ALT 17 U/L (12-78); SODIUM 141 mmol/L (136-145); TOTAL PROTEIN 7.7 gm/dL (6.4-8.2)
[2021-11-29 17:13] LABS: ATYPICAL LYMPHS 2 % (0-0); OVALOCYTES FEW; PLATELET SUFFICIENCY NORMAL (NORMAL); TOTAL CELLS COUNTED 100 #CELLS
== END | disposition home or self-care (01) ==
LOC: LAB 16:11
PROVIDERS: Student in an Organized Health Care Education/Training Program; ATTEND Family Medicine
DX: K52.9 Noninfective gastroenteritis and colitis, unspecified (principal)

== ENCOUNTER → 2021-12-02 | Outpatient (CLI) | payer OTHER | END | disposition home or self-care (01) | LOC: LAB 14:38 | PROVIDERS: Student in an Organized Health Care Education/Training Program; ATTEND Family Medicine | DX: K52.9 Noninfective gastroenteritis and colitis, unspecified (principal) ==

== ENCOUNTER → 2021-12-17 | Outpatient (CLI) | payer OTHER | END | disposition home or self-care (01) | LOC: CT 12:22 | PROVIDERS: ATTEND Family Medicine | DX: K52.9 Noninfective gastroenteritis and colitis, unspecified (principal) ==

== ENCOUNTER → 2022-01-14 | Outpatient (CLI) | payer OTHER | END | disposition home or self-care (01) | LOC: LAB 12:37 | PROVIDERS: ATTEND Specialist | DX: J30.9 Allergic rhinitis, unspecified (principal) ==

== ENCOUNTER → 2023-01-19 | Outpatient (CLI) | payer OTHER | END | disposition home or self-care (01) | LOC: MAMMO 01:07 | PROVIDERS: ATTEND Nurse Practitioner Women's Health | DX: Z12.31 Encounter for screening mammogram for malignant neoplasm of breast (principal) ==

== ENCOUNTER → 2023-04-18 | Outpatient (CLI) | payer OTHER ==
[2023-04-18 11:20] LABS: HEMATOCRIT 41.8 % (37.0-47.0); MEAN CELL VOLUME 90.5 fl (81.0-99.0); MEAN CORPUSCULAR HGB 31.2 pg (27.0-31.0); MEAN CORPUSCULAR HGB CONC 34.4 g/dl (33.0-37.0); MEAN PLATELET VOLUME 9.3 fl (9.6-12.3); RED BLOOD COUNT 4.62 10*6/uL (4.10-5.10); RED CELL DISTRI WIDTH 12.8 % (0-14.5); WHITE BLOOD COUNT 6.2 10*3/uL (4.8-10.8)
[2023-04-18 12:02] LABS: ALKALINE PHOSPHATASE 86 U/L (46-116); BUN 16 mg/dl (9-23); CHLORIDE 109 mmol/L (98-107); CHOLESTEROL 166 mg/dL (<200); LDL CHOLESTEROL 90 mg/dL (9-159); POTASSIUM 4.8 mmol/L (3.4-5.1); SGPT/ALT 13 U/L (10-49); TOTAL PROTEIN 7.2 gm/dL (6.0-8.0); TRIGLYCERIDES 99 mg/dl (<150)
== END | disposition home or self-care (01) ==
LOC: LAB 10:51
PROVIDERS: ATTEND Physician Assistant
DX: I10 Essential (primary) hypertension (principal)

== ENCOUNTER → 2023-09-01 | Outpatient (CLI) | payer OTHER ==
[2023-09-01 08:32] LABS: BASO % 0.2 % (0.0-1.0); EOS # 0.1 10*3/uL (0.0-0.4); EOS % 2.3 % (1.0-4.0); LYMPH # 1.3 10*3/uL (1.3-4.4); LYMPH % 23.7 % (27.0-41.0); MEAN CELL VOLUME 89.5 fl (81.0-99.0); MEAN CORPUSCULAR HGB 29.2 pg (27.0-31.0); MEAN CORPUSCULAR HGB CONC 32.7 g/dl (33.0-37.0); MEAN PLATELET VOLUME 8.8 fl (9.6-12.3); MONO # 0.5 10*3/uL (0.1-1.0); NEUT # 3.4 10*3/uL (2.3-7.9); NEUT % 63.6 % (47.0-73.0); PLATELET COUNT AUTOMATED 257 10*3/uL (130-400); RED BLOOD COUNT 5.03 10*6/uL (4.10-5.10); WHITE BLOOD COUNT 5.3 10*3/uL (4.8-10.8)
[2023-09-01 09:27] LABS: ALKALINE PHOSPHATASE 74 U/L (46-116); BUN 12 mg/dl (9-23); CHLORIDE 106 mmol/L (98-107); CHOLESTEROL 199 mg/dL (<200); FREE T4 1.11 ng/dl (0.89-1.76); LDL CHOLESTEROL 121 mg/dL (9-159); POTASSIUM 4.8 mmol/L (3.4-5.1); SGPT/ALT 15 U/L (5-49); THYROXINE (T4) TOTAL 9.4 ug/dl (4.5-10.9); TOTAL PROTEIN 7.2 gm/dL (6.0-8.0); TRIGLYCERIDES 59 mg/dl (<150)
== END | disposition home or self-care (01) ==
LOC: LAB 03:10
PROVIDERS: ATTEND Family Medicine
DX: Z00.00 Encounter for general adult medical examination without abnormal findings (principal); Z13.220 Encounter for screening for lipoid disorders; R73.9 Hyperglycemia, unspecified; R53.83 Other fatigue

== ENCOUNTER 2023-09-04 20:30 | Emergency (ER) | payer OTHER ==
[~2023-09-04] VITALS: Ht 160 cm; Wt 103.0 kg
[2023-09-04 20:56] LABS: BASO % 0.2 % (0.0-1.0); EOS # 0.2 10*3/uL (0.0-0.4); EOS % 1.7 % (1.0-4.0); HEMATOCRIT 43.7 % (37.0-47.0); LYMPH # 1.4 10*3/uL (1.3-4.4); LYMPH % 14.1 % (27.0-41.0); MEAN CELL VOLUME 90.1 fl (81.0-99.0); MEAN CORPUSCULAR HGB 30.1 pg (27.0-31.0); MEAN CORPUSCULAR HGB CONC 33.4 g/dl (33.0-37.0); MEAN PLATELET VOLUME 8.9 fl (9.6-12.3); MONO # 0.8 10*3/uL (0.1-1.0); MONO % 8.7 % (3.0-9.0); NEUT # 7.2 10*3/uL (2.3-7.9); PLATELET COUNT AUTOMATED 253 10*3/uL (130-400); RED BLOOD COUNT 4.85 10*6/uL (4.10-5.10); WHITE BLOOD COUNT 9.6 10*3/uL (4.8-10.8)
[2023-09-04 21:16] LABS: ALKALINE PHOSPHATASE 83 U/L (46-116); BUN 12 mg/dl (9-23); CHLORIDE 105 mmol/L (98-107); LIPASE 57 U/L (12-53); POTASSIUM 3.9 mmol/L (3.4-5.1); SGPT/ALT 16 U/L (5-49); TOTAL PROTEIN 7.7 gm/dL (6.0-8.0)
[2023-09-04 21:21] LABS: BILIRUBIN Negative (Negative); BLOOD Trace-Lysed (Negative); CLARITY Clear (Clear); COLOR Yellow (Yellow); GLUCOSE Negative (Negative); KETONE 1+ (Negative); LEUKO ESTERASE 2+ (Negative); NITRITE Negative (Negative); PH 5.5 (4.5-8.0); UROBILINOGEN 0.2 E.U./dl (0.0-1.0)
[2023-09-04 21:32] LABS: BACTERIA 3+
[2023-09-04 21:33] LABS: EPITHELIAL CELLS 16-20; RBC 0-2 rbc/hpf (0-2); WBC 21-30 wbc/hpf (0-5)
[2023-09-04] MEDS ORDERED: CIPRO500 MG PO (23:59)
== END 2023-09-05 01:11 | disposition home or self-care (01) ==
LOC: ED 20:30
PROVIDERS: Internal Medicine
DX: N39.0 Urinary tract infection, site not specified (principal); M25.511 Pain in right shoulder; R10.2 Pelvic and perineal pain; F32.A Depression, unspecified; Z87.442 Personal history of urinary calculi; Z98.890 Other specified postprocedural states

== ENCOUNTER → 2023-09-19 | Outpatient (CLI) | payer OTHER ==
[~2023-09-19] MED LIST changes: +CIPRO500 MG PO
[2023-09-19 15:57] LABS: BILIRUBIN Negative (Negative); BLOOD Negative (Negative); CLARITY Clear (Clear); COLOR Yellow (Yellow); GLUCOSE Negative (Negative); KETONE Negative (Negative); LEUKO ESTERASE Negative (Negative); NITRITE Negative (Negative); UROBILINOGEN 0.2 E.U./dl (0.0-1.0)
[2023-09-19 16:33] LABS: BACTERIA TRACE; RBC 0-2 rbc/hpf (0-2); WBC 0-2 wbc/hpf (0-5)
== END | disposition home or self-care (01) ==
LOC: LAB 15:14
PROVIDERS: ATTEND Family Medicine
DX: R30.0 Dysuria (principal)

== ENCOUNTER 2023-12-25 15:32 | Emergency (ER) | payer OTHER ==
[~2023-12-25] VITALS: Ht 157.4 cm; Wt 102.1 kg
[2023-12-25 16:47] LABS: BILIRUBIN Negative (Negative); BLOOD Negative (Negative); CLARITY Clear (Clear); COLOR Yellow (Yellow); GLUCOSE Negative (Negative); KETONE Negative (Negative); LEUKO ESTERASE Negative (Negative); NITRITE Negative (Negative); PH 5.5 (4.5-8.0); SPECIFIC GRAVITY <= 1.005 (1.001-1.030); UROBILINOGEN 0.2 E.U./dl (0.0-1.0)
[2023-12-25 16:51] LABS: BASO % 0.3 % (0.0-1.0); EOS # 0.3 10*3/uL (0.0-0.4); EOS % 3.9 % (1.0-4.0); HEMATOCRIT 41.6 % (37.0-47.0); LYMPH # 1.3 10*3/uL (1.3-4.4); LYMPH % 19.5 % (27.0-41.0); MEAN CELL VOLUME 89.3 fl (81.0-99.0); MEAN CORPUSCULAR HGB 29.2 pg (27.0-31.0); MEAN CORPUSCULAR HGB CONC 32.7 g/dl (33.0-37.0); MEAN PLATELET VOLUME 8.9 fl (9.6-12.3); MONO # 0.8 10*3/uL (0.1-1.0); MONO % 11.5 % (3.0-9.0); NEUT # 4.3 10*3/uL (2.3-7.9); NEUT % 64.7 % (47.0-73.0); PLATELET COUNT AUTOMATED 245 10*3/uL (130-400); RED BLOOD COUNT 4.66 10*6/uL (4.10-5.10); RED CELL DISTRI WIDTH 12.9 % (0-14.5); WHITE BLOOD COUNT 6.7 10*3/uL (4.8-10.8)
[2023-12-25 17:01] LABS: BACTERIA 1+
[2023-12-25 17:12] LABS: BUN 11 mg/dl (9-23); CHLORIDE 105 mmol/L (98-107); POTASSIUM 3.8 mmol/L (3.4-5.1)
== END 2023-12-25 17:19 | disposition home or self-care (01) ==
LOC: ED 15:32
PROVIDERS: Nurse Practitioner Family
DX: R10.9 Unspecified abdominal pain (principal); F32.A Depression, unspecified; Z98.890 Other specified postprocedural states; Z96.651 Presence of right artificial knee joint; Z90.49 Acquired absence of other specified parts of digestive tract; Z87.442 Personal history of urinary calculi

== ENCOUNTER → 2024-03-08 | Outpatient (CLI) | payer OTHER ==
[2024-03-08 14:22] LABS: BASO % 0.5 % (0.0-1.0); EOS # 0.2 10*3/uL (0.0-0.4); EOS % 3.4 % (1.0-4.0); HEMATOCRIT 40.2 % (37.0-47.0); LYMPH # 1.2 10*3/uL (1.3-4.4); LYMPH % 17.9 % (27.0-41.0); MEAN CELL VOLUME 88.7 fl (81.0-99.0); MEAN CORPUSCULAR HGB 29.4 pg (27.0-31.0); MEAN CORPUSCULAR HGB CONC 33.1 g/dl (33.0-37.0); MEAN PLATELET VOLUME 8.7 fl (9.6-12.3); MONO # 0.7 10*3/uL (0.1-1.0); MONO % 10.2 % (3.0-9.0); NEUT # 4.4 10*3/uL (2.3-7.9); NEUT % 67.8 % (47.0-73.0); PLATELET COUNT AUTOMATED 288 10*3/uL (130-400); RED BLOOD COUNT 4.53 10*6/uL (4.10-5.10); RED CELL DISTRI WIDTH 13.1 % (0-14.5); WHITE BLOOD COUNT 6.5 10*3/uL (4.8-10.8)
[2024-03-08 15:03] LABS: ALKALINE PHOSPHATASE 79 U/L (46-116); BUN 9 mg/dl (9-23); CHLORIDE 107 mmol/L (98-107); POTASSIUM 3.9 mmol/L (3.4-5.1); SGPT/ALT 22 U/L (5-49); TOTAL PROTEIN 7.1 gm/dL (6.0-8.0)
== END | disposition home or self-care (01) ==
LOC: LAB 13:58
PROVIDERS: ATTEND Family Medicine
DX: R60.0 Localized edema (principal); A69.20 Lyme disease, unspecified; R73.9 Hyperglycemia, unspecified; R53.83 Other fatigue

== ENCOUNTER → 2024-03-13 | Outpatient (CLI) | payer OTHER | END | disposition home or self-care (01) | LOC: US 00:26 | PROVIDERS: ATTEND Family Medicine | DX: K76.0 Fatty (change of) liver, not elsewhere classified (principal); J90 Pleural effusion, not elsewhere classified; R19.4 Change in bowel habit; R11.10 Vomiting, unspecified; R14.0 Abdominal distension (gaseous) ==

== ENCOUNTER → 2024-03-21 | Day surgery (SDC) | payer OTHER ==
[~2024-03-21] VITALS: Ht 157.4 cm; Wt 101.2 kg
[~2024-03-21] MED LIST changes: +BUPIVACAINE 0.5% 30 ML IV ONE; +Dexamethasone Sodium Phospha 20 MG/5 ML VIAL IV ONE; +HYDROCODONE-AC1 EAC1 PO; +Ketorolac Tromethamine 30 MG/ML VIAL IV ONE; +Lactated Ringer's Solution 1,000 ML IV ONE; +Lactated Ringer's Solution 1,000 ML IV SCH; +Midazolam Hydrochloride 2 MG/2 ML VIAL IV ONE; +OXYBUTYNIN5 MG PO; +Ondansetron Hydrochloride 4 MG/2 ML VIAL IV ONE; +PROPOFOL 200 MG/20 ML VIAL IV ONE; +SUGAMMADEX SODIUM 200 MG/2 ML VIAL IV ONE; +ceFAZolin sodium/sodium chlor 20 ML IV ONE; +fentaNYL CITRATE 100 MCG/2 ML VIAL IV ONE
[2024-03-21 06:30] VITALS: BP 164/93
[2024-03-21 07:28] LABS: BUN 9 mg/dl (9-23); CHLORIDE 106 mmol/L (98-107); POTASSIUM 4.2 mmol/L (3.4-5.1)
[2024-03-21 10:42] VITALS: BP 155/86
[2024-03-21 11:00] VITALS: BP 123/78
[2024-03-21 11:12] VITALS: BP 138/72
[2024-03-21 11:30] VITALS: BP 129/60
[2024-03-21 11:41] VITALS: BP 156/85
== END | disposition home or self-care (01) ==
LOC: SDC 03-20 08:00
PROVIDERS: Anesthesiology; Nurse Practitioner; ATTEND Surgery
DX: K82.8 Other specified diseases of gallbladder (principal); R18.8 Other ascites; K29.50 Unspecified chronic gastritis without bleeding; C78.6 Secondary malignant neoplasm of retroperitoneum and peritoneum; R10.0 Acute abdomen; K80.20 Calculus of gallbladder without cholecystitis without obstruction; K21.9 Gastro-esophageal reflux disease without esophagitis; F32.A Depression, unspecified; I10 Essential (primary) hypertension; M17.12 Unilateral primary osteoarthritis, left knee; Z79.899 Other long term (current) drug therapy; Z98.890 Other specified postprocedural states

== ENCOUNTER → 2024-03-25 | Outpatient (CLI) | payer OTHER ==
[~2024-03-25] MED LIST changes: -BUPIVACAINE 0.5% 30 ML IV ONE; -Dexamethasone Sodium Phospha 20 MG/5 ML VIAL IV ONE; +IOHEXOL 300 MG/ML 100 ML VIAL IV ONE; -Ketorolac Tromethamine 30 MG/ML VIAL IV ONE; -Lactated Ringer's Solution 1,000 ML IV ONE; -Lactated Ringer's Solution 1,000 ML IV SCH; -Midazolam Hydrochloride 2 MG/2 ML VIAL IV ONE; -Ondansetron Hydrochloride 4 MG/2 ML VIAL IV ONE; -PROPOFOL 200 MG/20 ML VIAL IV ONE; -SUGAMMADEX SODIUM 200 MG/2 ML VIAL IV ONE; -ceFAZolin sodium/sodium chlor 20 ML IV ONE; -fentaNYL CITRATE 100 MCG/2 ML VIAL IV ONE
== END | disposition home or self-care (01) ==
LOC: CT 11:38 → LAB 11:38 → CT 14:00
PROVIDERS: ATTEND Surgery
DX: K76.0 Fatty (change of) liver, not elsewhere classified (principal); R10.0 Acute abdomen; J90 Pleural effusion, not elsewhere classified; J98.11 Atelectasis; R60.0 Localized edema

== ENCOUNTER → 2024-04-16 | Outpatient (CLI) | payer OTHER ==
[~2024-04-16] MED LIST changes: -IOHEXOL 300 MG/ML 100 ML VIAL IV ONE; +Lidocaine Hydrochloride 5 ML AMP ONE; +OXYCODONE5 M1 PO; +SODIUM BICARBONATE 4.2% 5 ML VIAL ONE; +TYLENOL EXTRA500 MG PO; +VITAMIN D350 MCG PO
[2024-04-16 10:15] VITALS: BP 167/96
[2024-04-16 12:50] VITALS: BP 164/96
[2024-04-16 13:20] VITALS: BP 157/91
[2024-04-16 13:40] VITALS: BP 159/85
== END | disposition home or self-care (01) ==
LOC: EDSTATUS 11:00
PROVIDERS: ATTEND Obstetrics & Gynecology
DX: C38.4 Malignant neoplasm of pleura (principal); R18.0 Malignant ascites; G89.3 Neoplasm related pain (acute) (chronic); J90 Pleural effusion, not elsewhere classified

== ENCOUNTER → 2024-04-18 | Day surgery (SDC) | payer OTHER ==
[2024-04-16 10:14] LABS: BASO % 0.4 % (0.0-1.0); EOS # 0.1 10*3/uL (0.0-0.4); EOS % 1.3 % (1.0-4.0); LYMPH # 0.7 10*3/uL (1.3-4.4); LYMPH % 10.1 % (27.0-41.0); MEAN CELL VOLUME 88.7 fl (81.0-99.0); MEAN CORPUSCULAR HGB CONC 32.7 g/dl (33.0-37.0); MEAN PLATELET VOLUME 8.4 fl (9.6-12.3); MONO # 0.8 10*3/uL (0.1-1.0); MONO % 11.1 % (3.0-9.0); NEUT # 5.4 10*3/uL (2.3-7.9); NEUT % 76.7 % (47.0-73.0); PLATELET COUNT AUTOMATED 546 10*3/uL (130-400); RED BLOOD COUNT 4.62 10*6/uL (4.10-5.10); RED CELL DISTRI WIDTH 12.8 % (0-14.5); WHITE BLOOD COUNT 7.1 10*3/uL (4.8-10.8)
[2024-04-16 10:15] VITALS: BP 167/96
[2024-04-16 10:41] LABS: ALKALINE PHOSPHATASE 83 U/L (46-116); BUN 8 mg/dl (9-23); CHLORIDE 101 mmol/L (98-107); POTASSIUM 3.1 mmol/L (3.4-5.1); SGPT/ALT 15 U/L (5-49); TOTAL PROTEIN 7.2 gm/dL (6.0-8.0)
[2024-04-16 11:20] LABS: ACT PARTIAL THROMBO TIME 30.1 SECONDS (20.0-32.1)
[~2024-04-18] VITALS: Ht 157.4 cm; Wt 101.2 kg
[~2024-04-18] MED LIST changes: +BUPIVACAINE 0.5% 30 ML IV ONE; +HEPARIN SODIUM 500 UNIT/5 ML SYR IV ONE; +Lidocaine Hydrochloride 30 ML VIAL ONE; -Lidocaine Hydrochloride 5 ML AMP ONE; +Midazolam Hydrochloride 2 MG/2 ML VIAL IV ONE; +PROPOFOL 200 MG/20 ML VIAL IV ONE; -SODIUM BICARBONATE 4.2% 5 ML VIAL ONE; +SODIUM CHLORIDE 0.9% 100 ML IV ONE; +ceFAZolin sodium/sodium chlor 20 ML IV ONE; +fentaNYL CITRATE 100 MCG/2 ML VIAL IV ONE
[2024-04-18 06:46] VITALS: BP 178/107
[2024-04-18 08:21] VITALS: BP 125/67
[2024-04-18 08:36] VITALS: BP 168/93
[2024-04-18 08:50] VITALS: BP 165/91
== END | disposition home or self-care (01) ==
LOC: SDC 04-12 13:15
PROVIDERS: Internal Medicine Hematology & Oncology; Radiology Diagnostic Radiology; ATTEND Surgery
DX: C56.2 Malignant neoplasm of left ovary (principal); F32.A Depression, unspecified; K21.9 Gastro-esophageal reflux disease without esophagitis; Z96.653 Presence of artificial knee joint, bilateral; Z96.612 Presence of left artificial shoulder joint

== ENCOUNTER → 2024-05-02 | Outpatient (CLI) | payer OTHER ==
[~2024-05-02] MED LIST changes: -BUPIVACAINE 0.5% 30 ML IV ONE; +COMPAZINE5 M3 PO; +FUROSEMIDE20 M1 PO; -HEPARIN SODIUM 500 UNIT/5 ML SYR IV ONE; -Lidocaine Hydrochloride 30 ML VIAL ONE; +Lidocaine Hydrochloride 5 ML AMP ONE; -Midazolam Hydrochloride 2 MG/2 ML VIAL IV ONE; +POTASSIUM CHLO20 ME4 PO; -PROPOFOL 200 MG/20 ML VIAL IV ONE; +SODIUM BICARBONATE 4.2% 5 ML VIAL ONE; -SODIUM CHLORIDE 0.9% 100 ML IV ONE; -ceFAZolin sodium/sodium chlor 20 ML IV ONE; -fentaNYL CITRATE 100 MCG/2 ML VIAL IV ONE
[2024-05-02 11:08] VITALS: BP 154/83
[2024-05-02 12:45] VITALS: BP 156/79
[2024-05-02 12:59] VITALS: BP 174/92
[2024-05-02 13:06] VITALS: BP 164/91
[2024-05-02 13:27] VITALS: BP 142/75
== END | disposition home or self-care (01) ==
LOC: EDSTATUS 11:00
PROVIDERS: ATTEND Nurse Practitioner
DX: R18.8 Other ascites (principal); J90 Pleural effusion, not elsewhere classified; K21.9 Gastro-esophageal reflux disease without esophagitis; F32.A Depression, unspecified

== ENCOUNTER → 2024-06-27 | Outpatient (CLI) | payer OTHER ==
[~2024-06-27] MED LIST changes: +IOHEXOL 300 MG/ML 100 ML VIAL IV ONE; +IOHEXOL 300 MG/ML 100 ML VIAL ONE; -Lidocaine Hydrochloride 5 ML AMP ONE; -SODIUM BICARBONATE 4.2% 5 ML VIAL ONE
== END | disposition home or self-care (01) ==
LOC: CT 01:33
PROVIDERS: ATTEND Internal Medicine Hematology & Oncology
DX: J90 Pleural effusion, not elsewhere classified (principal); C56.9 Malignant neoplasm of unspecified ovary

== ENCOUNTER → 2024-09-13 | Outpatient (CLI) | payer OTHER ==
[2024-09-13 17:00] LABS: BASO % 0.4 % (0.0-1.0); EOS # 0.2 10*3/uL (0.0-0.4); EOS % 4.7 % (1.0-4.0); HEMATOCRIT 34.5 % (37.0-47.0); MEAN CELL VOLUME 92.2 fl (81.0-99.0); MEAN CORPUSCULAR HGB 31.3 pg (27.0-31.0); MEAN CORPUSCULAR HGB CONC 33.9 g/dl (33.0-37.0); MEAN PLATELET VOLUME 8.6 fl (9.6-12.3); MONO # 0.5 10*3/uL (0.1-1.0); MONO % 10.9 % (3.0-9.0); NEUT % 60.9 % (47.0-73.0); PLATELET COUNT AUTOMATED 234 10*3/uL (130-400); RED BLOOD COUNT 3.74 10*6/uL (4.10-5.10); RED CELL DISTRI WIDTH 11.7 % (0-14.5); WHITE BLOOD COUNT 4.9 10*3/uL (4.8-10.8)
[2024-09-13 17:23] LABS: ALKALINE PHOSPHATASE 80 U/L (46-116); BUN 12 mg/dl (9-23); CHLORIDE 106 mmol/L (98-107); POTASSIUM 3.7 mmol/L (3.4-5.1); TOTAL PROTEIN 6.8 gm/dL (6.0-8.0)
[2024-09-13 17:25] LABS: SGPT/ALT < 7 U/L (5-49)
== END | disposition home or self-care (01) ==
LOC: LAB 00:04 → CT 16:00 → LAB 16:00
PROVIDERS: ATTEND Internal Medicine Hematology & Oncology
DX: C56.1 Malignant neoplasm of right ovary (principal); J90 Pleural effusion, not elsewhere classified

== ENCOUNTER → 2024-09-20 | Outpatient (CLI) | payer OTHER ==
[~2024-09-20] MED LIST changes: +GADOTERATE MEGLUMINE 10 MMOL/20 ML VIAL IV ONE; -IOHEXOL 300 MG/ML 100 ML VIAL IV ONE; -IOHEXOL 300 MG/ML 100 ML VIAL ONE
== END | disposition home or self-care (01) ==
LOC: MRI 01:59
PROVIDERS: ATTEND Internal Medicine Hematology & Oncology
DX: R41.0 Disorientation, unspecified (principal); G93.89 Other specified disorders of brain

== ENCOUNTER → 2024-10-21 | Outpatient (CLI) | payer OTHER ==
[~2024-10-21] MED LIST changes: -GADOTERATE MEGLUMINE 10 MMOL/20 ML VIAL IV ONE
== END | disposition home or self-care (01) ==
LOC: MAMMO 10-16 07:30
PROVIDERS: ATTEND Physician Assistant
DX: Z12.31 Encounter for screening mammogram for malignant neoplasm of breast (principal); R92.1 Mammographic calcification found on diagnostic imaging of breast

== ENCOUNTER → 2024-11-08 | Outpatient (CLI) | payer OTHER ==
[~2024-11-08] MED LIST changes: +IOHEXOL 300 MG/ML 100 ML VIAL IV ONE
== END | disposition home or self-care (01) ==
LOC: CT 01:08
PROVIDERS: ATTEND Internal Medicine Hematology & Oncology
DX: S06.0X9A Concussion with loss of consciousness of unspecified duration, initial encounter (principal); R41.89 Other symptoms and signs involving cognitive functions and awareness; R20.2 Paresthesia of skin; W19.XXXA Unspecified fall, initial encounter; Y93.89 Activity, other specified; Y92.89 Other specified places as the place of occurrence of the external cause; Y99.8 Other external cause status

== ENCOUNTER → 2024-12-04 | Outpatient (CLI) | payer OTHER ==
[~2024-12-04] MED LIST changes: -IOHEXOL 300 MG/ML 100 ML VIAL IV ONE
== END | disposition home or self-care (01) ==
LOC: RAD 15:30
PROVIDERS: ATTEND Family Medicine
DX: K59.09 Other constipation (principal); R18.8 Other ascites

== ENCOUNTER → 2024-12-10 | Outpatient (CLI) | payer OTHER ==
[~2024-12-10] MED LIST changes: +'KLONOPIN0.5 MG PO; +ALBUMIN 25% 100 ML IV SCH; +BUSPAR5 MG PO; +COLACE100 MG PO; +COMPAZINE10 M1 PO; +DAILY VALUE1 EACH PO; +HEPARIN SODIUM 500 UNIT/5 ML SYR IV ONE; +IOHEXOL 350 MG/ML 100 ML VIAL IV ONE; +MAGNESIUM GLYC100 M1 PO; +MIRALAX119 GM PO; +OMNICEF300 MG PO; +Ondansetron4 MG PO; +Ondansetron8 MG PO; +PROTONIX TR40 M1 PO; +SENNA-PLUS TAB1 EACH PO; +SODIUM CHLORIDE 0.9% 100 ML IV ONE; +VILAZODONE HCL40 M1 PO; +VITAMIN B121000 MC3 PO
[2024-12-10 08:53] LABS: ACT PARTIAL THROMBO TIME 24.8 SECONDS (20.0-32.1)
[2024-12-10 09:01] VITALS: BP 137/80
[2024-12-10 10:30] VITALS: BP 138/72
[2024-12-10 10:45] VITALS: BP 134/73
[2024-12-10 11:15] VITALS: BP 143/74; BP 143/743
== END | disposition home or self-care (01) ==
LOC: LAB 01:10 → EDSTATUS 09:00
PROVIDERS: Radiology Diagnostic Radiology; ATTEND Family Medicine
DX: R18.8 Other ascites (principal); J90 Pleural effusion, not elsewhere classified

== ENCOUNTER 2024-12-11 07:18 | Emergency (ER) | payer OTHER ==
[~2024-12-11] VITALS: Ht 160 cm; Wt 90.7 kg
[~2024-12-11 07:18] MED LIST changes: -'KLONOPIN0.5 MG PO; -ALBUMIN 25% 100 ML IV SCH; -BUSPAR5 MG PO; -COLACE100 MG PO; -COMPAZINE10 M1 PO; -DAILY VALUE1 EACH PO; -HEPARIN SODIUM 500 UNIT/5 ML SYR IV ONE; -IOHEXOL 350 MG/ML 100 ML VIAL IV ONE; -MAGNESIUM GLYC100 M1 PO; -MIRALAX119 GM PO; -OMNICEF300 MG PO; -Ondansetron4 MG PO; -Ondansetron8 MG PO; -PROTONIX TR40 M1 PO; -SENNA-PLUS TAB1 EACH PO; -SODIUM CHLORIDE 0.9% 100 ML IV ONE; -VILAZODONE HCL40 M1 PO; -VITAMIN B121000 MC3 PO
[2024-12-11] MEDS ORDERED: Ondansetron Hydrochloride 4 MG/2 ML VIAL IV ONE (07:40)
[2024-12-11] MEDS ORDERED: HYDROmorphone Hydrochloride 1 MG/ML SYR IV ONE (07:40)
[2024-12-11] MEDS ORDERED: FAMOTIDINE 50 ML IV ONE (07:40)
[2024-12-11] MEDS ORDERED: SODIUM CHLORIDE 0.9% 1,000 ML IV ONE (07:40)
[2024-12-11] MEDS ORDERED: SODIUM CHLORIDE 0.9% 100 ML BAG IV ONE (07:50)
[2024-12-11] MEDS ORDERED: IOHEXOL 350 MG/ML 100 ML VIAL IV ONE (07:50)
[2024-12-11 08:00] LABS: BASO % 0.2 % (0.0-1.0); EOS % 0.3 % (1.0-4.0); HEMATOCRIT 33.8 % (37.0-47.0); MEAN CELL VOLUME 90.6 fl (81.0-99.0); MEAN CORPUSCULAR HGB 29.2 pg (27.0-31.0); MEAN CORPUSCULAR HGB CONC 32.2 g/dl (33.0-37.0); MEAN PLATELET VOLUME 8.2 fl (9.6-12.3); MONO # 0.7 10*3/uL (0.1-1.0); MONO % 11.7 % (3.0-9.0); NEUT # 4.5 10*3/uL (2.3-7.9); NEUT % 77.5 % (47.0-73.0); PLATELET COUNT AUTOMATED 330 10*3/uL (130-400); RED BLOOD COUNT 3.73 10*6/uL (4.10-5.10); WHITE BLOOD COUNT 5.8 10*3/uL (4.8-10.8)
[2024-12-11 08:10] LABS: ACT PARTIAL THROMBO TIME 27.5 SECONDS (20.0-32.1)
[2024-12-11] MEDS ORDERED: BUSPAR5 MG PO (08:12)
[2024-12-11] MEDS ORDERED: DAILY VALUE1 EACH PO (08:13)
[2024-12-11] MEDS ORDERED: MAGNESIUM GLYC100 M1 PO (08:13)
[2024-12-11] MEDS ORDERED: 'KLONOPIN0.5 MG PO (08:14)
[2024-12-11] MEDS ORDERED: VILAZODONE HCL40 M1 PO (08:14)
[2024-12-11] MEDS ORDERED: MIRALAX119 GM PO (08:15)
[2024-12-11] MEDS ORDERED: PROTONIX TR40 M1 PO (08:15)
[2024-12-11] MEDS ORDERED: SENNA-PLUS TAB1 EACH PO (08:15)
[2024-12-11] MEDS ORDERED: Ondansetron8 MG PO (08:16)
[2024-12-11] MEDS ORDERED: VITAMIN B121000 MC3 PO (08:17)
[2024-12-11] MEDS ORDERED: COMPAZINE10 M1 PO (08:17)
[2024-12-11 08:25] LABS: ALKALINE PHOSPHATASE 64 U/L (46-116); BUN 11 mg/dl (9-23); CHLORIDE 106 mmol/L (98-107); CPK 22 U/L (34-171); LIPASE 41 U/L (12-53); POTASSIUM 3.7 mmol/L (3.4-5.1); TOTAL PROTEIN 6.6 gm/dL (6.0-8.0)
[2024-12-11 08:30] LABS: SGPT/ALT < 7 U/L (5-49)
[2024-12-11] MEDS ORDERED: COLACE100 MG PO (10:14)
[2024-12-11] MEDS ORDERED: PERCOCET 5-3251 EACH PO (10:14)
[2024-12-11] MEDS ORDERED: Ondansetron4 MG PO (10:14)
[2024-12-11 10:15] LABS: BILIRUBIN Negative (Negative); BLOOD 1+ (Negative); CLARITY Clear (Clear); COLOR Yellow (Yellow); GLUCOSE Negative (Negative); KETONE 1+ (Negative); LEUKO ESTERASE Trace (Negative); NITRITE Negative (Negative); SPECIFIC GRAVITY >= 1.030 (1.001-1.030)
[2024-12-11 10:28] LABS: WBC 31-40 wbc/hpf (0-5)
[2024-12-11] MEDS ORDERED: cefTRIAXone Sodium 1 GM/10 ML SYR IV ONE (10:30)
[2024-12-11] MEDS ORDERED: OMNICEF300 MG PO (10:33)
== END 2024-12-11 11:06 | disposition home or self-care (01) ==
LOC: ED 07:18
PROVIDERS: Emergency Medicine
DX: C56.9 Malignant neoplasm of unspecified ovary (principal); K59.00 Constipation, unspecified; R18.8 Other ascites; N30.90 Cystitis, unspecified without hematuria; J90 Pleural effusion, not elsewhere classified; K21.9 Gastro-esophageal reflux disease without esophagitis; F41.9 Anxiety disorder, unspecified; Z79.899 Other long term (current) drug therapy; Z98.890 Other specified postprocedural states; Z96.652 Presence of left artificial knee joint